=== PATIENT | female | born 1970 | race Caucasian/White ===

== ENCOUNTER 2017-07-25 05:37 | Inpatient (IN) | payer BC, OTHER ==
[~2017-07-25] VITALS: Ht 172.7 cm; Wt 97.7 kg
[~2017-07-25 05:37] MED LIST: BCPILLS PO; CPR500 PO; PEDICHW50 PO
[2017-07-25 06:18] LABS: BASO % 0.2 %; BASO ABS # 0.03 K/uL (0-0.2); COMPLETE YES; EOS % 0.3 %; HEMATOCRIT 47.5 % (37-47); IG% 0.2 %; LYMPH % 7.5 %; LYMPH ABS # 1.27 K/uL (1.2-3.4); MEAN CELL VOLUME 90.5 fL (80-100); MEAN CORPUSCULAR HEMOGLOBIN 31.6 pg (25-34); MEAN CORPUSCULAR HGB CONC 34.9 g/dl (32-36); MEAN PLATELET VOLUME 10.7 fL (7.4-10.4); MONO % 4.1 %; NEUT % 87.7 %; PLATELET COUNT 274 K/uL (130-400); RED BLOOD COUNT 5.25 M/uL (4.2-5.4); WHITE BLOOD COUNT 16.86 K/uL (4.8-10.8)
[2017-07-25 06:30] LABS: BUN/CREATININE RATIO 9.7 (10-20); CALCIUM 9.3 mg/dl (8.5-10.1); CREATININE 0.87 mg/dl (0.60-1.20); POTASSIUM 3.7 mmol/L (3.5-5.1)
[2017-07-25 06:32] LABS: ALB/GLOB RATIO 0.7 (0.9-2)
[2017-07-25] MEDS ORDERED: HYDROmorphone INJ 1 MG/ML SYR IV STA (06:32)
--- NOTE | 2017-07-25 06:39 | EMERGENCY ROOM VISIT NOTE ---
History Report prepared by Denys: Clarita Felix Under the Supervision of: Dr. Calixto Mcintyre M.D. First contact with patient: 06:26 Chief Complaint: GI ASSESSMENT Stated Complaint: DIVERTICULITIS ATTACK Nursing Triage Summary: c/o llq abd pain since tuesday texted her dr at 0430 today and was told to come to the ed.hx of diverticulitis. History of Present Illness The patient is a 46 year old female who presents to the Emergency Room for evaluation of LLQ abdominal pain. Starting yesterday afternoon. Sharp pain. Radiates to left flank. Mild loose stools and nausea. No urinary symptoms. No blood in stool. Denies fevers, chills, vomiting, syncope, swelling, rashes, nor other symptoms. No medications prior to arrival. Movement makes worse. Rest makes better. History of diverticulitis several years ago requiring 1 week admission without need for surgery. History of cholecystectomy. Source of History: patient Onset: yesterday afternoon Position: abdomen (LLQ) Quality: sharp Associated Symptoms: + nausea, No LOC, No fevers, No chills, No urinary symptoms, No rash Review of Systems See HPI for pertinent positives & negatives. A total of 10 systems reviewed and were otherwise negative. Past Medical & Surgical Medical Problems: (1) Acute diverticulitis (2) disc surgery (3) Dizziness and giddiness (4) Tachycardia Surgical Problems: (1) S/P cholecystectomy (2) Tubal ligation status Family History Breast cancer Diabetes mellitus Hypertension Social History Smoking Status: Never Smoker Drug Use: none Marital Status: Housing Status: lives with family Occupation Status: employed Current/Historical Medications Scheduled Control Pills ( Control Pills), 1 TAB PO DAILY Allergies Coded Allergies: No Known Allergies (Unverified , 07/25/17) Physical Exam Vital Signs Date Time Temp Pulse Resp B/P (MAP) Pulse Ox O2 Delivery O2 Flow Rate FiO2 07/25/17 07:40 110 18 130/75 97 Room Air 07/25/17 06:39 114 18 97 Room Air 07/25/17 05:44 36.9 121 18 156/87 95 Room Air Physical Exam GENERAL: Patient is well appearing and in moderate distress. HEENT: No acute trauma, normocephalic atraumatic, mucous membranes moist, no nasal congestion, no scleral icterus. NECK: No stridor, no adenopathy, no meningismus, trachea is midline. LUNGS: No dyspnea. Clear to auscultation and equal bilaterally. No wheeze, no rhonchi. HEART: Regular rate and rhythm. No murmurs, rubs, gallops appreciated. ABDOMEN: Moderate TTP LLQ without rebound. Otherwise soft, nontender, bowel sounds positive, no masses appreciated, no peritonitis. BACK: No midline tenderness, no CVA tenderness EXTREMITIES: Normal motion all extremities, no cyanosis, no edema. NEUROLOGIC: Alert and oriented, no acute motor or sensory deficits, no focal weakness, cranial nerves grossly intact. SKIN: No rash, no jaundice, no diaphoresis. Medical Decision & Procedures ER Provider Diagnostic Interpretation: Radiology results and stated below per my review and radiologist interpretation: ABD/PELVIS IV CONTRAST ONLY HISTORY: 46 years-old Female LLQ abdominal pain. elevated wbc. h/o diverticulitis. Acute left lower quadrant abdominal pain. Initial exam. History of diverticulitis. COMPARISON: CT 01/06/2015 TECHNIQUE: Multiple axial CT images of the abdomen and pelvis were obtained following the administration of both oral and IV contrast. A dose lowering technique was used consistent with the principals of PROSPER. FINDINGS: Lung bases are generally clear. Mild right hemidiaphragmatic elevation. Imaged inferior cardiac chambers are unremarkable. Probable fatty infiltration of the liver. 1.4 cm hyperattenuating focus of the subserosal aspect segment 4A is unchanged from comparison and indeterminate, however statistically benign suggesting incidental vascular anomaly. Prior cholecystectomy. The spleen, pancreas and adrenal glands are within normal limits. No intrahepatic or extrahepatic biliary ductal dilation. Kidneys, ureters, urinary bladder, uterus and adnexa are unremarkable. Abdominal aorta is normal in both course and caliber. No bulky retroperitoneal adenopathy. Small duodenal diverticulum. No bowel obstruction. There is moderate wall thickening with moderate mesenteric edema surrounding inflammatory sigmoid diverticulum seen on image 357 of series 3. No associated pneumoperitoneum to suggest perforation. No abscess. There is hyperattenuating material within the right hemicolon suggesting ingested material or recent oral contrast. The appendix appears normal. Soft tissues are unremarkable. Bones appear intact. Intervertebral disc space narrowing with posterior disc osteophyte complex at L5-S1. IMPRESSION: 1. Findings compatible with acute uncomplicated sigmoid diverticulitis. 2. Probable fatty infiltration of the liver. 3. Prior cholecystectomy. The above report was generated using voice recognition software. It may contain grammatical, syntax or spelling errors. Electronically signed by: Jacek Harvey M.D. 07/25/2017 7:38 AM Dictated Date/Time: 07/25/2017 7:30 AM Laboratory Results 07/25/17 05:55 Red Blood Count 5.25, Mean Corpuscular Volume 90.5, Mean Corpuscular Hemoglobin 31.6, Mean Corpuscular Hemoglobin Concent 34.9, Mean Platelet Volume 10.7, Neutrophils (%) (Auto) 87.7, Lymphocytes (%) (Auto) 7.5, Monocytes (%) (Auto) 4.1, Eosinophils (%) (Auto) 0.3, Basophils (%) (Auto) 0.2, Neutrophils # (Auto) 14.79, Lymphocytes # (Auto) 1.27, Monocytes # (Auto) 0.69, Eosinophils # (Auto) 0.05, Basophils # (Auto) 0.03 07/25/17 05:55 Test 07/25/17 05:55 White Blood Count 16.86 K/uL (4.8-10.8) Red Blood Count 5.25 M/uL (4.2-5.4) Hemoglobin 16.6 g/dL (12.0-16.0) Hematocrit 47.5 % (37-47) Mean Corpuscular Volume 90.5 fL (80-100) Mean Corpuscular Hemoglobin 31.6 pg (25-34) Mean Corpuscular Hemoglobin Concent 34.9 g/dl (32-36) Platelet Count 274 K/uL (130-400) Mean Platelet Volume 10.7 fL (7.4-10.4) Neutrophils (%) (Auto) 87.7 % Lymphocytes (%) (Auto) 7.5 % Monocytes (%) (Auto) 4.1 % Eosinophils (%) (Auto) 0.3 % Basophils (%) (Auto) 0.2 % Neutrophils # (Auto) 14.79 K/uL (1.4-6.5) Lymphocytes # (Auto) 1.27 K/uL (1.2-3.4) Monocytes # (Auto) 0.69 K/uL (0.11-0.59) Eosinophils # (Auto) 0.05 K/uL (0-0.5) Basophils # (Auto) 0.03 K/uL (0-0.2) RDW Standard Deviation 42.8 fL (36.4-46.3) RDW Coefficient of Variation 13.0 % (11.5-14.5) Immature Granulocyte % (Auto) 0.2 % Immature Granulocyte # (Auto) 0.03 K/uL (0.00-0.02) Prothrombin Time 10.6 SECONDS (9.0-12.0) Prothromb Time International Ratio 1.0 (0.9-1.1) Activated Partial Thromboplast Time 27.7 SECONDS (21.0-31.0) Partial Thromboplastin Ratio 1.1 Anion Gap 9.0 mmol/L (3-11) Est Creatinine Clear Calc Drug Dose 95.8 ml/min Estimated GFR () 91.3 Estimated GFR (Non- 78.8 BUN/Creatinine Ratio 9.7 (10-20) Calcium Level 9.3 mg/dl (8.5-10.1) Total Bilirubin 0.9 mg/dl (0.2-1) Aspartate Amino Transf (AST/SGOT) 21 U/L (15-37) Alanine Aminotransferase (ALT/SGPT) 40 U/L (12-78) Alkaline Phosphatase 69 U/L (45-117) Total Protein 7.8 gm/dl (6.4-8.2) Albumin 3.2 gm/dl (3.4-5.0) Globulin 4.6 gm/dl (2.5-4.0) Albumin/Globulin Ratio 0.7 (0.9-2) Lipase 99 U/L (73-393) Laboratory results as reviewed by me. Medications Administered Medications (Trade) Dose Ordered Sig/Domitila Route Start Time Stop Time Status Last Admin Dose Admin Hydromorphone HCl (Dilaudid Inj) 1 mg NOW STAT IV 07/25/17 06:32 07/25/17 06:33 DC 07/25/17 06:37 1 MG Hydromorphone HCl (Dilaudid Inj) 1 mg Q20M PRN IV 07/25/17 07:30 07/25/17 09:45 DC 07/25/17 09:21 1 MG Piperacillin Sod/ Tazobactam Sod (Zosyn Iv) 4.5 gm NOW STAT IV 07/25/17 07:42 07/25/17 07:44 DC 07/25/17 08:05 4.5 GM Sodium Chloride 1,000 ml @ 999 mls/hr Q1H1M STAT IV 07/25/17 07:48 07/25/17 08:48 DC 07/25/17 08:05 999 MLS/HR ED Course 0620: The patient was evaluated in room B1. A complete history and physical exam was performed. 0632: Ordered Dilaudid Inj 1 mg IV. 0730: ordered Dilaudid Inj 1 mg IV. 0742: Ordered Zosyn IV 4.5 gm IV. 0745: I reevaluated the patient and she is feeling better. I discussed the exam findings with her and I discussed the treatment plan. She verbalized complete understanding and agreement. She will be evaluated for further treatment. 0748: Ordered Sodium Chloride 1000 ml @ 999 mls/hr IV. 0749: I discussed the patient's case with Shima Melvin. He is going to evaluate the patient for further treatment. Medical Decision Differential: Diverticulitis, Renal Colic, Pyelonephritis, Hydronephrosis, Appendicitis, Retroperitoneal Bleed/Infection, Aortic Pathology, MSK, Neurologic Pathology, amongst other pathologies entertained. 46 yr old female arrives with acute LLQ abdominal pain starting tomorrow. Quite TTP without diffuse peritonitis. CT with non-perf diverticulitis. Abdomen otherwise OK. Moderate leukocytosis, tachycardia. Not over sepsis but clearly is headed that direction thus given initial Zosyn along with fluids. Feeling better with pain medications. With history will consult hospitalist for monitoring/treatment in hospital. Medication Reconcilliation Current Medication List: was personally reviewed by me Consults Time Called: 747 Consulting Physician: Shima Melvin Returned Call: 0749 I discussed the patient's case with Shima Melvin. He is going to evaluate the patient for further treatment. Impression Primary Impression: Diverticulitis Additional Impression: Leukocytosis Scribe Attestation The scribe's documentation has been prepared under my direction and personally reviewed by me in its entirety. I confirm that the note above accurately reflects all work, treatment, procedures, and medical decision making performed by me. Departure Information Dispostion Being Evaluated By Hospitalist Referrals Ruth De Paz DO (PCP) Problem Qualifiers
--- NOTE | 2017-07-25 06:43 | EMERGENCY ROOM VISIT NOTE ---
History First contact with patient: 06:11 Chief Complaint: GI ASSESSMENT Stated Complaint: DIVERTICULITIS ATTACK Nursing Triage Summary: c/o llq abd pain since tuesday texted her dr at 0430 today and was told to come to the ed.hx of diverticulitis. History of Present Illness The patient is a 46 year old female who presents to the Emergency Room with complaints of left lower quadrant abdominal pain beginning yesterday morning. She states the pain is sharp and constant, rates the pain as 14/10 in severity, and states that it radiates to the back. She has had normal bowel movements, without the presence of blood, and has been nauseous without any vomiting. She has a history of diverticulitis - her last attack was 2-3 years ago, and she was admitted to the hospital for a week and given IV antibiotics. She states she did not have an abscess or rupture at that time, but had a colonoscopy shortly after which was negative for malignancy. Review of Systems Negative except as noted. Constitutional: No fever, No chills, No sweats Eyes: No eye pain ENT: No hearing loss, No sore throat, No tinnitus, No trouble swallowing Respiratory: No cough, No sputum, No wheezing, No shortness of breath Cardiovascular: No chest pain, No edema Abdomen: + pain, + nausea, No vomiting, No diarrhea, No constipation, No GI bleeding Genitourinary - Female: + problem reported (vaginal bleeding consistent with menstrual cycle), No dysuria Neurologic: No memory loss, No numbness/tingling Integumentary: No rash, No new/changing skin lesions Past Medical/Surgical History Medical Problems: (1) Acute diverticulitis (2) disc surgery (3) Dizziness and giddiness (4) Tachycardia Surgical Problems: (1) S/P cholecystectomy (2) Tubal ligation status Social History Smoking Status: Never Smoker Drug Use: none Marital Status: Housing Status: lives with family Current/Historical Medications Scheduled Control Pills ( Control Pills), 1 TAB PO DAILY Allergies No allergies to medications Physical Exam Vital Signs Date Time Temp Pulse Resp B/P (MAP) Pulse Ox O2 Delivery O2 Flow Rate FiO2 07/25/17 09:16 98 18 130/76 97 07/25/17 08:42 Room Air 07/25/17 07:40 110 18 130/75 97 Room Air 07/25/17 06:39 114 18 97 Room Air 10/23/17 05:44 36.9 121 18 156/87 95 Room Air Pain Rating (0-10): 10 Physical Exam No pertinent findings except as noted. General Appearance: WD/WN, + mild distress Respiratory/Chest: chest non-tender, lungs clear, normal breath sounds, no respiratory distress, no accessory muscle use Cardiovascular: regular rate, rhythm, no edema, no gallop, no JVD, no murmur Abdomen / GI: soft, no organomegaly, no pulsatile mass, + tenderness ( tender over lower abdomen, worse over LLQ), + pertinent finding (No abdominal distention, no guarding, no rigidity, no rebound tenderness) Back: normal inspection, no CVA tenderness Neurologic/Psych: alert, normal mood/affect, oriented x 3 Medical Decision & Procedures ER Provider Diagnostic Interpretation: CT Abdomen - Small duodenal diverticulum. No bowel obstruction. There is moderate wall thickening with moderate mesenteric edema surrounding inflammatory sigmoid diverticulum. No associated pneumoperitoneum to suggest perforation. No abscess. Laboratory Results 07/25/17 05:55 Red Blood Count 5.25, Mean Corpuscular Volume 90.5, Mean Corpuscular Hemoglobin 31.6, Mean Corpuscular Hemoglobin Concent 34.9, Mean Platelet Volume 10.7, Neutrophils (%) (Auto) 87.7, Lymphocytes (%) (Auto) 7.5, Monocytes (%) (Auto) 4.1, Eosinophils (%) (Auto) 0.3, Basophils (%) (Auto) 0.2, Neutrophils # (Auto) 14.79, Lymphocytes # (Auto) 1.27, Monocytes # (Auto) 0.69, Eosinophils # (Auto) 0.05, Basophils # (Auto) 0.03 07/25/17 05:55 Test 07/25/17 05:55 White Blood Count 16.86 K/uL (4.8-10.8) Red Blood Count 5.25 M/uL (4.2-5.4) Hemoglobin 16.6 g/dL (12.0-16.0) Hematocrit 47.5 % (37-47) Mean Corpuscular Volume 90.5 fL (80-100) Mean Corpuscular Hemoglobin 31.6 pg (25-34) Mean Corpuscular Hemoglobin Concent 34.9 g/dl (32-36) Platelet Count 274 K/uL (130-400) Mean Platelet Volume 10.7 fL (7.4-10.4) Neutrophils (%) (Auto) 87.7 % Lymphocytes (%) (Auto) 7.5 % Monocytes (%) (Auto) 4.1 % Eosinophils (%) (Auto) 0.3 % Basophils (%) (Auto) 0.2 % Neutrophils # (Auto) 14.79 K/uL (1.4-6.5) Lymphocytes # (Auto) 1.27 K/uL (1.2-3.4) Monocytes # (Auto) 0.69 K/uL (0.11-0.59) Eosinophils # (Auto) 0.05 K/uL (0-0.5) Basophils # (Auto) 0.03 K/uL (0-0.2) RDW Standard Deviation 42.8 fL (36.4-46.3) RDW Coefficient of Variation 13.0 % (11.5-14.5) Immature Granulocyte % (Auto) 0.2 % Immature Granulocyte # (Auto) 0.03 K/uL (0.00-0.02) Prothrombin Time 10.6 SECONDS (9.0-12.0) Prothromb Time International Ratio 1.0 (0.9-1.1) Activated Partial Thromboplast Time 27.7 SECONDS (21.0-31.0) Partial Thromboplastin Ratio 1.1 Anion Gap 9.0 mmol/L (3-11) Est Creatinine Clear Calc Drug Dose 95.8 ml/min Estimated GFR () 91.3 Estimated GFR (Non- 78.8 BUN/Creatinine Ratio 9.7 (10-20) Calcium Level 9.3 mg/dl (8.5-10.1) Total Bilirubin 0.9 mg/dl (0.2-1) Aspartate Amino Transf (AST/SGOT) 21 U/L (15-37) Alanine Aminotransferase (ALT/SGPT) 40 U/L (12-78) Alkaline Phosphatase 69 U/L (45-117) Total Protein 7.8 gm/dl (6.4-8.2) Albumin 3.2 gm/dl (3.4-5.0) Globulin 4.6 gm/dl (2.5-4.0) Albumin/Globulin Ratio 0.7 (0.9-2) Lipase 99 U/L (73-393) Medications Administered Medications (Trade) Dose Ordered Sig/Domitila Route Start Time Stop Time Status Last Admin Dose Admin Hydromorphone HCl (Dilaudid Inj) 1 mg NOW STAT IV 07/25/17 06:32 07/25/17 06:33 DC 07/25/17 06:37 1 MG Hydromorphone HCl (Dilaudid Inj) 1 mg Q20M PRN IV 07/25/17 07:30 08/08/17 07:29 07/25/17 09:21 1 MG Piperacillin Sod/ Tazobactam Sod (Zosyn Iv) 4.5 gm NOW STAT IV 07/25/17 07:42 07/25/17 07:44 DC 07/25/17 08:05 4.5 GM Sodium Chloride 1,000 ml @ 999 mls/hr Q1H1M STAT IV 07/25/17 07:48 07/25/17 08:48 DC 07/25/17 08:05 999 MLS/HR Medical Decision The patient was seen and assessed in room A9. Given her extensive diverticulitis and increased WCC, she was evaluated by Dr. Godwin and will be admitted. She was given 1mg of Dilaudid and Zosyn in the ED. This was discussed with the patient and she stated she would feel more comfortable being admitted. Impression Primary Impression: Acute diverticulitis Departure Information Dispostion Admitted as an inpatient Referrals Ruth De Paz DO (PCP) Patient Instructions My [facility] Resident Tracking Resident Involvement: Resident Care Provided Care Provided: Adult Hospital Medicine
[2017-07-25] MEDS ORDERED: OPTIRAY 320 IV PRN (06:45)
[2017-07-25] MEDS ORDERED: HYDROmorphone INJ 1 MG/ML SYR IV PRN (07:30)
--- NOTE | 2017-07-25 07:40 | DIAGNOSTIC IMAGING REPORT ---
ABD/PELVIS IV CONTRAST ONLY HISTORY: 46 years-old Female LLQ abdominal pain. elevated wbc. h/o diverticulitis. Acute left lower quadrant abdominal pain. Initial exam. History of diverticulitis. COMPARISON: CT 01/06/2015 TECHNIQUE: Multiple axial CT images of the abdomen and pelvis were obtained following the administration of both oral and IV contrast. A dose lowering technique was used consistent with the principals of PROSPER. FINDINGS: Lung bases are generally clear. Mild right hemidiaphragmatic elevation. Imaged inferior cardiac chambers are unremarkable. Probable fatty infiltration of the liver. 1.4 cm hyperattenuating focus of the subserosal aspect segment 4A is unchanged from comparison and indeterminate, however statistically benign suggesting incidental vascular anomaly. Prior cholecystectomy. The spleen, pancreas and adrenal glands are within normal limits. No intrahepatic or extrahepatic biliary ductal dilation. Kidneys, ureters, urinary bladder, uterus and adnexa are unremarkable. Abdominal aorta is normal in both course and caliber. No bulky retroperitoneal adenopathy. Small duodenal diverticulum. No bowel obstruction. There is moderate wall thickening with moderate mesenteric edema surrounding inflammatory sigmoid diverticulum seen on image 357 of series 3. No associated pneumoperitoneum to suggest perforation. No abscess. There is hyperattenuating material within the right hemicolon suggesting ingested material or recent oral contrast. The appendix appears normal. Soft tissues are unremarkable. Bones appear intact. Intervertebral disc space narrowing with posterior disc osteophyte complex at L5-S1. IMPRESSION: 1. Findings compatible with acute uncomplicated sigmoid diverticulitis. 2. Probable fatty infiltration of the liver. 3. Prior cholecystectomy. The above report was generated using voice recognition software. It may contain grammatical, syntax or spelling errors. Electronically signed by: Jacek Harvey M.D. 07/25/2017 7:38 AM Dictated Date/Time: 07/25/2017 7:30 AM
[2017-07-25] MEDS ORDERED: PIPERACILLIN/TAZOBACTAM 4.5 GM/100ML D5W IV STA (07:42)
[2017-07-25] MEDS ORDERED: SODIUM CHLORIDE 0.9% 1000ML 1,000 ML IV STA (07:48)
[2017-07-25 08:26] LABS: PARTIAL THROMBOPLASTIN RATIO 1.1; PROTHROMBIN TIME (PATIENT) 10.6 SECONDS (9.0-12.0)
[2017-07-25] MEDS ORDERED: CIPROFLOXACIN / D5W 400 MG in PREMIXED IN D5W 200 ML IV ONE (08:26)
[2017-07-25] MEDS ORDERED: ALBUTEROL HFA 8 GM INHALER INH PRN (08:30)
[2017-07-25 08:42] VITALS: Ht 172.7 cm; Wt 97.7 kg
[2017-07-25] MEDS ORDERED: ALUMINUM/MAGNESIUM/SIMETH (MAALOX MAX) 30 ML UDC PO PRN (08:45)
--- NOTE | 2017-07-25 08:50 | HISTORY & PHYSICAL EXAMINATION ---
DATE OF ADMISSION: 07/25/2017 PRIMARY CARE PHYSICIAN: Ruth De Paz DO. CHIEF COMPLAINT: Lower abdomen and lower back pain since last night. HISTORY OF PRESENT COMPLAINT: She is a 46-year-old female with significant past medical history of allergic rhinitis, prior history of diverticulitis of the colon about 2 years back and also ovarian cyst of the left side. Apparently has been complaining of left flank/back pain associated with abdominal pain since last night. Her pain is severe on a scale of 0-10 is anywhere about 8 associated with some nausea but no vomiting and dizziness. She did have a feeling of feverish and documented a temperature to be 100.2 last night. She did not have any abdominal distention and no diarrhea and constipation. She denies to have any problem with her urine and/or bowel, urine habits as well. She does not have any chest pain, palpitation, any shortness of breath. No headache, no blurred vision, no numbness or tingling in the extremities and she does not have any pain involving any of the joints and no rash as well. In the Emergency Room, she was hemodynamically stable. She was afebrile. Her white count of more than 16,000 and a CAT scan did show acute diverticulitis involving the sigmoid colon but no evidence of any perforation and/or abscess. From that point, she was started on intravenous antibiotic and was advised admission. PAST MEDICAL HISTORY: Significant for allergic rhinitis, history of diverticulitis, left ovarian cyst and also a history of excessive menstruation. PAST SURGICAL HISTORY: Significant for cholecystectomy and back surgery in the past. FAMILY HISTORY: Significant that father had diabetes and also grandparent had diabetes. SOCIAL HISTORY: She is . She lives with her . She has 2 kids. She does not smoke and does not drink and she has been reasonably ambulant. ALLERGIES: NKDA. MEDICATIONS: She takes regularly control pill and she has been on albuterol ProAir as needed for allergic symptoms, I believe. REVIEW OF SYSTEMS: Other systemic review unremarkable except those mentioned in history of present complaint. PHYSICAL EXAMINATION: GENERAL: On examination in the Emergency Room, she was not having any acute distress, but she complained to have some pain in the left lower abdomen and hypogastric area. HEENT: Unremarkable. VITAL SIGNS: Temperature 36.9, pulse of 110. Blood pressure was 130/75 and saturation 97% on room air. HEENT: Unremarkable. NECK: Supple. No JVD, no bruit. CHEST: Clear to auscultation bilaterally. HEART: S1, S2 regular. ABDOMEN: Slightly distended and soft. Tender in the left lower quadrant and also hypogastrium. There is no rebound tenderness and tenderness noted in the left flank and/or left renal angle as well. EXTREMITIES: No edema. MUSCULOSKELETAL: Did not show any acute arthritis involving any joint. CENTRAL NERVOUS SYSTEM: Alert, awake, oriented x3 and did not have any focal sensory and/or motor deficit. She did not have any rash on general examinations and did not have any enlargement of lymph nodes. LABORATORY DATA: Noted today white count was 16.86 with a neutrophilic of 14.79, H&H 16.6/47.5, platelet was 274. Sodium 136, potassium 3.7, chloride 105, CO2 22, BUN 8, creatinine 0.87, random glucose 180, calcium was 9.3. LFTs normal. Lipase 79. PT INR is pending. EKG is pending. Chest x-ray is pending. CT of the abdomen and pelvis reported as findings compatible with acute uncomplicated sigmoid diverticulitis, probable fatty infiltration of the liver and prior cholecystectomy. IMPRESSION AND PLAN: 1. Acute sigmoid diverticulitis. The patient does have criteria of systemic inflammatory response syndrome. Started on intravenous Zosyn. We will get blood culture taken. She will be given Cipro and Flagyl IV. IV pain medications and also IV fluid for the time being. Clear liquids orally and as tolerated. 2. Allergic rhinitis. She does not have any allergic symptoms at this time. Continue with her usual medications of inhaler. 3. Prior history of diverticulitis of the colon about 2 years back. This is her second episode in 2-3 years, outpatient followup with surgery would be appropriate. She has had a colonoscopy done about 1-2 years ago that was unremarkable. 3. Gastrointestinal prophylaxis with Maalox, Mylanta as needed. 4. Deep venous thrombosis prophylaxis with Lovenox. 5. Code status -- She will be a full code. In my clinical assessment, the beneficiary meets criteria as per CMS for 2 midnight admission in the hospital. NATASHA
[2017-07-25 09:30] VITALS: BP 128/77; PULSE 99; TEMP 37.3; O2SAT 96
[2017-07-25] MEDS: NSS + 20MEQ KCL 1000ML 1,000 ML IV SCH ×2 (10:43→19:32)
[2017-07-25] MEDS: ENOXAPARIN 40 MG/0.4 ML SYR SQ SCH (10:45)
[2017-07-25] MEDS: CIPROFLOXACIN / D5W 400 MG in PREMIXED IN D5W 200 ML IV SCH ×2 (10:51→20:45)
[2017-07-25] MEDS: METRONIDAZOLE / NSS 500 MG in PREMIXED NSS 100 ML IV SCH ×2 (10:51→18:08)
[2017-07-25 12:44] LABS: URINE APPEARANCE CLEAR (CLEAR); URINE BILIRUBIN NEG (NEG); URINE COLOR YELLOW; URINE NITRITE NEG (NEG); URINE SPECIFIC GRAVITY > 1.045 (1.000-1.030); UROBILINOGEN NEG (NEG); ZZUR CULT IF INDIC CLEAN CATCH NO
[2017-07-25 12:45] LABS: MANUAL MICROSCOPIC REQUIRED? NO; REVIEW REQ? NO
[2017-07-25] MEDS: ONDANSETRON INJ 2 MG/ML 2 ML VIAL IV PRN (12:49)
[2017-07-25] MEDS: HYDROmorphone INJ 1 MG/ML SYR IV PRN ×2 (13:12→19:31)
--- NOTE | 2017-07-25 14:05 | DIAGNOSTIC IMAGING REPORT ---
CHEST 2 VIEWS ROUTINE CLINICAL HISTORY: r/o pneumonia dyspnea COMPARISON STUDY: 12/27/2012 FINDINGS: The bones soft tissues and hemidiaphragms are normal. The cardiomediastinal silhouette is normal. The lungs are clear. The pulmonary vasculature is normal. IMPRESSION: Negative chest. The above report was generated using voice recognition software. It may contain grammatical, syntax or spelling errors. Electronically signed by: Connor Fofana M.D. 07/25/2017 2:04 PM Dictated Date/Time: 07/25/2017 2:03 PM
[2017-07-25 15:09] VITALS: BP 123/56; PULSE 106; TEMP 37.2; O2SAT 95
[2017-07-25 19:09] VITALS: O2SAT 95
[2017-07-25 23:10] VITALS: BP 131/77; PULSE 91; TEMP 36.7; O2SAT 95
[2017-07-25] MEDS ORDERED: HYDROmorphone INJ 0.5 MG/0.5 ML SYR IV PRN (23:45)
[2017-07-26] MEDS ORDERED: KETOROLAC TROMETHAMINE 30 MG/ML VIAL IV PRN
[2017-07-26] MEDS: TRAMADOL HCL 50 MG TAB PO PRN ×3 (00:53→12:47)
[2017-07-26] MEDS: ACETAMINOPHEN 325 MG TAB PO PRN ×3 (00:54→23:43)
[2017-07-26] MEDS: METRONIDAZOLE / NSS 500 MG in PREMIXED NSS 100 ML IV SCH ×3 (02:36→18:26)
[2017-07-26] MEDS: NSS + 20MEQ KCL 1000ML 1,000 ML IV SCH (05:54)
[2017-07-26 07:38] LABS: HEMATOCRIT 39.3 % (37-47); MEAN CELL VOLUME 91.6 fL (80-100); MEAN CORPUSCULAR HEMOGLOBIN 31.7 pg (25-34); MEAN CORPUSCULAR HGB CONC 34.6 g/dl (32-36); MEAN PLATELET VOLUME 10.3 fL (7.4-10.4); PLATELET COUNT 211 K/uL (130-400); RED BLOOD COUNT 4.29 M/uL (4.2-5.4)
[2017-07-26 07:51] LABS: BUN/CREATININE RATIO 6.6 (10-20); CREATININE 0.79 mg/dl (0.60-1.20); POTASSIUM 3.6 mmol/L (3.5-5.1)
[2017-07-26 07:57] LABS: CALCIUM 7.9 mg/dl (8.5-10.1)
[2017-07-26 08:31] VITALS: BP 129/75; PULSE 91; TEMP 37.3; O2SAT 97
[2017-07-26] MEDS: CIPROFLOXACIN / D5W 400 MG in PREMIXED IN D5W 200 ML IV SCH ×2 (09:00→21:09)
[2017-07-26] MEDS: ENOXAPARIN 40 MG/0.4 ML SYR SQ SCH (10:40)
--- NOTE | 2017-07-26 12:27 | Clinical Documentation Query ---
CLINICAL DOCUMENTATION QUERY 46 yo female with complaint of LLQ abdominal pain and positive for acute sigmoid diverticulitis. In your clinical opinion is this patient being managed for: ( ) Sepsis, in the setting of acute sigmoid diverticulitis and treated with IV Zosyn ( ) Not Agree ( ) Other explanation of clinical findings (Please Explain) ( ) Unable to determine (Please Define) ( ) Need to Discuss The medical record reflects the following clinical findings, treatment, and risk factors. Clinical Indicators: WBC 16, pulse 121, temp 100.2 Treatment: Zosyn IV, IV hydration, Cipro IV, blood cultures Risk Factors: Abscess and/or perforation, organ failure Please clarify and document your clinical opinion in the progress notes and discharge summary. Terms such as "probable", "suspected", "likely", "questionable", "possible", or "still to be ruled out" are acceptable. IF IN AGREEMENT, YOU MUST DOCUMENT ABOVE DIAGNOSTIC STATEMENT IN DAILY PROGRESS NOTES AND DISCHARGE SUMMARY. This document is not part of the patient's record. Thank You, Nataliya Rubio RN [phone]
--- NOTE | 2017-07-26 15:11 | Progress Note ---
Medicine Progress Note Date & Time of Visit: Jul 26, 2017 at 15:11 . Subjective Left lower quadrant abdominal pain improved from 07/12 yesterday to 12/10 today. No fever. Tolerating clear liquids. No nausea or vomiting. No diarrhea or medical he 3. No chest pain. No cough or shortness of breath. No dysuria. . Objective Last 8 Hrs Date Time Temp Pulse Resp B/P (MAP) Pulse Ox O2 Delivery O2 Flow Rate FiO2 07/26/17 08:31 37.3 91 18 129/75 (93) 97 Room Air 07/26/17 08:30 Room Air Physical Exam: General- no distress Lungs- clear Heart- regular Abdomen- slightly distended, normal bowel sounds, soft, moderate left lower quadrant tenderness without guarding or rebound Extremities- no pretibial edema or calf tenderness Neuro- alert . Laboratory Results: Last 24 Hours Test 07/26/17 07:09 White Blood Count 9.80 K/uL Red Blood Count 4.29 M/uL Hemoglobin 13.6 g/dL Hematocrit 39.3 % Mean Corpuscular Volume 91.6 fL Mean Corpuscular Hemoglobin 31.7 pg Mean Corpuscular Hemoglobin Concent 34.6 g/dl RDW Standard Deviation 44.4 fL RDW Coefficient of Variation 13.2 % Platelet Count 211 K/uL Mean Platelet Volume 10.3 fL Sodium Level 139 mmol/L Potassium Level 3.6 mmol/L Chloride Level 109 mmol/L Carbon Dioxide Level 25 mmol/L Anion Gap 6.0 mmol/L Blood Urea Nitrogen 5 mg/dl Creatinine 0.79 mg/dl Est Creatinine Clear Calc Drug Dose 106.4 ml/min Estimated GFR () 102.6 Estimated GFR (Non- 88.5 BUN/Creatinine Ratio 6.6 Random Glucose 239 mg/dl Calcium Level 7.9 mg/dl Total Bilirubin 0.6 mg/dl Direct Bilirubin 0.2 mg/dl Aspartate Amino Transf (AST/SGOT) 15 U/L Alanine Aminotransferase (ALT/SGPT) 25 U/L Alkaline Phosphatase 52 U/L Total Protein 6.4 gm/dl Albumin 2.4 gm/dl Assessment & Plan DIVERTICULITIS SIGMOID COLON Recurrent (about 4 prior episodes), uncomplicated. Symptoms and leukocytosis improved. Continue the ciprofloxacin and metronidazole. Advance diet as tolerated. HYPERGLYCEMIA Family history of diabetes. Fasting blood sugar morning of admission 180. Fasting blood sugar this morning 239. Check hemoglobin A1c. Lantus/NovoLog per protocol during hospital stay. VTE PROPHYLAXIS SQ enoxaparin. Ambulate. DISPOSITION Expected discharge to home. Family Medicine follow-up with Dr. De Paz. . Current Inpatient Medications: Current Inpatient Medications Medications (Trade) Dose Ordered Sig/Domitila Route Start Time Stop Time Status Last Admin Dose Admin Ioversol (Optiray 320) 100 ml UD PRN IV 07/25/17 06:45 07/29/17 06:44 Enoxaparin Sodium (Lovenox Inj) 40 mg Q24H SQ 07/25/17 10:00 08/24/17 09:59 07/26/17 10:40 40 MG Ondansetron HCl (Zofran Inj) 4 mg Q6H PRN IV 07/25/17 08:30 08/24/17 08:29 07/25/17 12:49 4 MG Albuterol (Ventolin Hfa Inhaler) 2 puffs Q6H PRN INH 07/25/17 08:30 08/24/17 08:29 Ciprofloxacin/ Dextrose 400 mg/ Prmx 200 ml @ 100 mls/hr Q12@0900,2100 IV 07/25/17 10:00 08/04/17 09:59 07/26/17 09:00 100 MLS/HR Metronidazole 500 mg/Prmx 100 ml @ 100 mls/hr Q8H IV 07/25/17 10:00 08/04/17 09:59 07/26/17 10:39 100 MLS/HR Potassium Chloride/Sodium Chloride 1,000 ml @ 100 mls/hr Q10H IV 07/25/17 10:00 08/24/17 09:59 07/26/17 05:54 100 MLS/HR Al Hydrox/Mg Hydrox/Simethicone (Maalox Max Susp) 15 ml Q6H PRN PO 07/25/17 08:45 08/24/17 08:44 07/26/17 10:42 15 ML Hydromorphone HCl (Dilaudid Inj) 0.5 mg Q4H PRN IV 07/25/17 23:45 08/08/17 08:29 Tramadol HCl (Ultram Tab) 25 mg Q6H PRN PO 07/26/17 00:00 08/25/17 00:00 07/26/17 12:47 25 MG Acetaminophen (Tylenol Tab) 650 mg Q6H PRN PO 07/26/17 00:00 08/25/17 00:00 07/26/17 09:00 650 MG Ketorolac Tromethamine (Toradol Inj) 30 mg Q6H PRN IV 07/26/17 00:00 07/31/17 00:00
[2017-07-26 16:11] VITALS: BP 165/76; PULSE 92; TEMP 36.8; O2SAT 97
[2017-07-26] MEDS ORDERED: GLUCOSE 10 TABS/TUBE PO PRN (16:15)
[2017-07-26] MEDS ORDERED: GLUCAGON FOR INJ 1 MG VIAL SQ PRN (16:15)
[2017-07-26] MEDS ORDERED: GLUCOSE 40% GEL 15 GM TUBE PO PRN (16:15)
[2017-07-26] MEDS ORDERED: DEXTROSE 50% 50 ML SYR IV PRN (16:15)
[2017-07-26] MEDS: INSULIN ASPART 100 UNITS/ML 3 ML PEN SC SCH ×2 (18:25→21:00)
[2017-07-26] MEDS: ONDANSETRON INJ 2 MG/ML 2 ML VIAL IV PRN (18:26)
[2017-07-26] MEDS: INSULIN GLARGINE SOLOSTAR 100 UNITS/ML 3 ML PEN SC SCH (21:08)
[2017-07-26 23:31] VITALS: BP 133/81; PULSE 78; TEMP 36.6; O2SAT 97
[2017-07-27] MEDS: METRONIDAZOLE / NSS 500 MG in PREMIXED NSS 100 ML IV SCH ×2 (02:11→09:47)
[2017-07-27] MEDS: ONDANSETRON INJ 2 MG/ML 2 ML VIAL IV PRN ×2 (03:23→09:44)
--- NOTE | 2017-07-27 06:07 | Clinical Documentation Query ---
CLINICAL DOCUMENTATION QUERY 46 yo female with complaint of LLQ abdominal pain and positive for acute sigmoid diverticulitis. In your clinical opinion is this patient being managed for: ( ) Sepsis, in the setting of acute sigmoid diverticulitis and treated with IV Zosyn ( x ) Not Agree ( ) Other explanation of clinical findings (Please Explain) ( ) Unable to determine (Please Define) ( ) Need to Discuss The medical record reflects the following clinical findings, treatment, and risk factors. Clinical Indicators: Documented meets SIRS criteria: WBC 16, pulse 121, temp 100.2 Treatment: Zosyn IV, IV hydration, Cipro IV, blood cultures Risk Factors: Abscess and/or perforation, organ failure Please clarify and document your clinical opinion in the progress notes and discharge summary. Terms such as "probable", "suspected", "likely", "questionable", "possible", or "still to be ruled out" are acceptable. IF IN AGREEMENT, YOU MUST DOCUMENT ABOVE DIAGNOSTIC STATEMENT IN DAILY PROGRESS NOTES AND DISCHARGE SUMMARY. This document is not part of the patient's record. Thank You, Nataliya Rubio RN [phone]
[2017-07-27 06:48] LABS: HEMATOCRIT 38.9 % (37-47); MEAN CELL VOLUME 91.1 fL (80-100); MEAN CORPUSCULAR HEMOGLOBIN 31.9 pg (25-34); MEAN PLATELET VOLUME 10.3 fL (7.4-10.4); PLATELET COUNT 227 K/uL (130-400); RED BLOOD COUNT 4.27 M/uL (4.2-5.4); WHITE BLOOD COUNT 6.88 K/uL (4.8-10.8)
[2017-07-27 07:22] LABS: BUN/CREATININE RATIO 8.8 (10-20); CREATININE 0.61 mg/dl (0.60-1.20); POTASSIUM 3.6 mmol/L (3.5-5.1)
[2017-07-27] MEDS: TRAMADOL HCL 50 MG TAB PO PRN (07:22)
[2017-07-27 07:33] VITALS: BP 144/78; PULSE 83; TEMP 36.9; O2SAT 98
[2017-07-27 07:54] LABS: ESTIMATED AVERAGE GLUCOSE 146 mg/dl; HA1C FLAG Normal (Normal)
[2017-07-27] MEDS: INSULIN ASPART 100 UNITS/ML 3 ML PEN SC SCH ×2 (08:44→13:12)
[2017-07-27] MEDS: ACETAMINOPHEN 325 MG TAB PO PRN (08:45)
[2017-07-27] MEDS: INSULIN GLARGINE SOLOSTAR 100 UNITS/ML 3 ML PEN SC SCH (08:45)
[2017-07-27] MEDS: CIPROFLOXACIN / D5W 400 MG in PREMIXED IN D5W 200 ML IV SCH (09:47)
[2017-07-27] MEDS: ENOXAPARIN 40 MG/0.4 ML SYR SQ SCH (09:47)
[2017-07-27 12:15] VITALS: BP 145/79; PULSE 80; TEMP 36.9; O2SAT 96
[2017-07-27 15:00] VITALS: BP 143/84; PULSE 82; TEMP 37.2; O2SAT 97
--- NOTE | 2017-07-27 16:27 | Progress Note ---
Medicine Progress Note Date & Time of Visit: Jul 27, 2017 at 16:26 . Subjective Feels much better. Left lower quadrant abdominal pain essentially resolved. No fever. No nausea or vomiting. No diarrhea or bloody stools. Persistent vertigo when lying on right side. . Objective Last 8 Hrs Date Time Temp Pulse Resp B/P (MAP) Pulse Ox O2 Delivery O2 Flow Rate FiO2 07/27/17 15:00 37.2 82 20 143/84 (103) 97 Room Air 07/27/17 12:15 36.9 80 16 145/79 (101) 96 Room Air Physical Exam: General- no distress Lungs- clear Heart- regular Abdomen- nondistended, normal bowel sounds, soft, nontender Extremities- no pretibial edema or calf tenderness Neuro- alert . Laboratory Results: Last 24 Hours Test 07/26/17 18:13 07/26/17 20:52 07/27/17 06:24 07/27/17 08:04 Bedside Glucose 135 mg/dl 170 mg/dl 185 mg/dl White Blood Count 6.88 K/uL Red Blood Count 4.27 M/uL Hemoglobin 13.6 g/dL Hematocrit 38.9 % Mean Corpuscular Volume 91.1 fL Mean Corpuscular Hemoglobin 31.9 pg Mean Corpuscular Hemoglobin Concent 35.0 g/dl RDW Standard Deviation 43.2 fL RDW Coefficient of Variation 13.0 % Platelet Count 227 K/uL Mean Platelet Volume 10.3 fL Sodium Level 141 mmol/L Potassium Level 3.6 mmol/L Chloride Level 109 mmol/L Carbon Dioxide Level 25 mmol/L Anion Gap 6.0 mmol/L Blood Urea Nitrogen 5 mg/dl Creatinine 0.61 mg/dl Est Creatinine Clear Calc Drug Dose 137.8 ml/min Estimated GFR () 124.2 Estimated GFR (Non- 107.2 BUN/Creatinine Ratio 8.8 Random Glucose 158 mg/dl Estimated Average Glucose 146 mg/dl Hemoglobin A1c 6.7 % Calcium Level 8.0 mg/dl Test 07/27/17 12:13 Bedside Glucose 165 mg/dl Assessment & Plan DIVERTICULITIS SIGMOID COLON Recurrent (about 4 prior episodes), uncomplicated. Received IV ciprofloxacin and metronidazole with improvement. Diet advanced without difficulty. Transition to oral therapy with ciprofloxacin and metronidazole to complete 14 day course. May be reasonable to consider elective sigmoid resection in light of multiple recurrences. Patient to discuss referral with PCP. HYPERGLYCEMIA Family history of diabetes. Fasting blood sugar morning of admission 180. Fasting blood sugar 07/26 was 239. Hemoglobin A1c = 6.7. Received Lantus/NovoLog per protocol during hospital stay. Diet, exercise, weight management discussed. Outpatient follow-up with PCP. May require initiation of therapy if blood sugars remain elevated. VERTIGO [place]-Hallpike positive on right. Felecia maneuver attempted, but not tolerated. Outpatient follow-up with ENT recommended. VTE PROPHYLAXIS SQ enoxaparin. Ambulate. DISPOSITION Discharge to home. Family Medicine follow-up with Dr. De Paz. . Current Inpatient Medications: Current Inpatient Medications Medications (Trade) Dose Ordered Sig/Domitila Route Start Time Stop Time Status Last Admin Dose Admin Ioversol (Optiray 320) 100 ml UD PRN IV 07/25/17 06:45 07/29/17 06:44 Enoxaparin Sodium (Lovenox Inj) 40 mg Q24H SQ 07/25/17 10:00 08/24/17 09:59 07/27/17 09:47 40 MG Ondansetron HCl (Zofran Inj) 4 mg Q6H PRN IV 07/25/17 08:30 08/24/17 08:29 07/27/17 09:44 4 MG Albuterol (Ventolin Hfa Inhaler) 2 puffs Q6H PRN INH 07/25/17 08:30 08/24/17 08:29 Ciprofloxacin/ Dextrose 400 mg/ Prmx 200 ml @ 100 mls/hr Q12@0900,2100 IV 07/25/17 10:00 08/04/17 09:59 07/27/17 09:47 100 MLS/HR Metronidazole 500 mg/Prmx 100 ml @ 100 mls/hr Q8H IV 07/25/17 10:00 08/04/17 09:59 07/27/17 09:47 100 MLS/HR Al Hydrox/Mg Hydrox/Simethicone (Maalox Max Susp) 15 ml Q6H PRN PO 07/25/17 08:45 08/24/17 08:44 07/26/17 10:42 15 ML Hydromorphone HCl (Dilaudid Inj) 0.5 mg Q4H PRN IV 07/25/17 23:45 08/08/17 08:29 Tramadol HCl (Ultram Tab) 25 mg Q6H PRN PO 07/26/17 00:00 08/25/17 00:00 07/27/17 07:22 25 MG Acetaminophen (Tylenol Tab) 650 mg Q6H PRN PO 07/26/17 00:00 08/25/17 00:00 07/27/17 08:45 650 MG Ketorolac Tromethamine (Toradol Inj) 30 mg Q6H PRN IV 07/26/17 00:00 07/31/17 00:00 07/26/17 18:27 30 MG Insulin Glargine (Lantus Solostar Pen) 8 units BID SC 07/26/17 21:00 08/25/17 20:59 07/27/17 08:45 8 UNITS Insulin Aspart (novoLOG ASPART) SLIDING SCALE G... ACHS SC 07/26/17 17:15 08/25/17 17:14 07/27/17 13:12 2 UNITS Glucose (Glucose 40% Gel) 15-30 GRAMS 15 GRAMS... UD PRN PO 07/26/17 16:15 08/25/17 16:14 Glucose (Glucose Chew Tab) 4-8 Tablets 4 Tabl... UD PRN PO 07/26/17 16:15 08/25/17 16:14 Dextrose (Dextrose 50% 50ML Syringe) 25-50ML OF 50% DW IV FOR... UD PRN IV 07/26/17 16:15 08/25/17 16:14 Glucagon (Glucagon Inj) 1 mg UD PRN SQ 07/26/17 16:15 08/25/17 16:14
[2017-07-27] MEDS ORDERED: CIPR-255 PO (16:35)
[2017-07-27] MEDS ORDERED: METR-162 PO (16:35)
--- NOTE | 2017-07-27 16:46 | Discharge Instructions ---
Discharge Instructions Date of Service Jul 27, 2017. Admission Reason for Admission: diverticulitis . Discharge Discharge Diagnosis / Problem: diverticulitis Discharge Goals Goal(s): Improve disease control Activity Recommendations Activity Limitations: resume your previous activity . Instructions / Follow-Up Instructions / Follow-Up FOLLOW-UP APPOINTMENTS: FAMILY MEDICINE 07/29/2017 1:00 PM Ruth De Paz, INSTRUCTIONS: Take ciprofloxacin (Cipro) 500 mg twice a day for 12 days. Take metronidazole (Flagyl) 500 mg 3 times a day for 12 days. Low fiber diet for 2 weeks, then high fiber. Avoid excessive starches and sweets. Have Dr. De Paz follow your blood sugars. Consider consultation with Dr. Moore to discuss recurrent diverticulitis. Seek medical attention if you have: * temperature above 101 * chest pain or trouble breathing * abdominal pain, nausea, vomiting * diarrhea, dark stools or bloody stools * any unanswered questions or concerns Call 911 if symptoms are severe. Call if you have any questions or problems. My cell # is [phone]. You can also reach a [facility] hospitalist on duty at [facility] 24 hours a day by calling [phone]. Please take good care of yourself. Christopher Russo . Current Hospital Diet Patient's current hospital diet: Diabetes Type 2 Diet, Low Fiber Diet Discharge Diet Recommended Diet: Regular Diet (see diet comments under "Instructions / Follow- up") Pending Studies Studies pending at discharge: no List of pending studies: CT abdomen showed diverticulitis. Laboratory Results Hemoglobin A1c Test 07/27/17 06:24 Range/Units Estimated Average Glucose 146 mg/dl Hemoglobin A1c 6.7 H 4.5-5.6 % Work Instructions Additional Instructions: Dayna Sheikh was absent from work the week of 07/25/17 due to illness. Anticipated return to work Tuesday08/01/17 without restrictions. Medical Emergencies . Who to Call and When: Medical Emergencies: If at any time you feel your situation is an emergency, please call 911 immediately. . Non-Emergent Contact Non-Emergency issues call your: Primary Care Provider, Hospital Doctor . . "Provider Documentation" section prepared by Christopher Russo. . VTE Core Measure Inpt VTE Proph given/why not?: Enoxaparin (Lovenox)SQ
[2017-07-27 17:28] VITALS: BP 143/84; PULSE 82; TEMP 37.2; O2SAT 97
--- NOTE | 2017-07-27 23:59 | Discharge Summary ---
Discharge Summary Date of Service Jul 27, 2017. Discharge Summary Admission Date: Jul 25, 2017 at 08:25 Discharge Date: Jul 27, 2017 Discharge Disposition: Home Principal Diagnosis: acute sigmoid diverticulitis, recurrent, uncomplicated . Secondary Diagnoses/Problems: Other Acute Medical Problems: (1) Hyperglycemia (2) Vertigo Chronic and Resolved Medical Problems: (1) History of colonic diverticulitis (2) Left ovarian cyst Surgical Problems: (1) Status post cholecystectomy (2) Status post lumbar surgery . Procedures: CT abdomen + pelvis IV fluids PT . Pending Studies/Follow-Up: Please monitor blood sugars and Hgb A1C's as outpatient. Please arrange for referral to ENT if vertigo persists. Consider referral to General Surgery (Dr. Moore) re: recurrent diverticulitis. . Medication Reconciliation New Medications: Ciprofloxacin Hcl (Cipro) 500 Mg Tab 500 MG PO BID, #24 TAB Metronidazole (Flagyl) 500 Mg Tab 500 MG PO TID, #36 TAB Continued Medications: Control Pills ( Control Pills) Tab 1 TAB PO DAILY, TAB Admission Information HPI (per Admitting provider): She is a 46-year-old female with significant past medical history of allergic rhinitis, prior history of diverticulitis of the colon about 2 years back and also ovarian cyst of the left side. Apparently has been complaining of left flank/back pain associated with abdominal pain since last night. Her pain is severe on a scale of 0-10 is anywhere about 8 associated with some nausea but no vomiting and dizziness. She did have a feeling of feverish and documented a temperature to be 100.2 last night. She did not have any abdominal distention and no diarrhea and constipation. She denies to have any problem with her urine and/or bowel, urine habits as well. She does not have any chest pain, palpitation, any shortness of breath. No headache, no blurred vision, no numbness or tingling in the extremities and she does not have any pain involving any of the joints and no rash as well. In the Emergency Room, she was hemodynamically stable. She was afebrile. Her white count of more than 16,000 and a CAT scan did show acute diverticulitis involving the sigmoid colon but no evidence of any perforation and/or abscess. From that point, she was started on intravenous antibiotic and was advised admission. . Physical Exam (per Admitting): GENERAL: On examination in the Emergency Room, she was not having any acute distress, but she complained to have some pain in the left lower abdomen and hypogastric area. HEENT: Unremarkable. VITAL SIGNS: Temperature 36.9, pulse of 110. Blood pressure was 130/75 and saturation 97% on room air. HEENT: Unremarkable. NECK: Supple. No JVD, no bruit. CHEST: Clear to auscultation bilaterally. HEART: S1, S2 regular. ABDOMEN: Slightly distended and soft. Tender in the left lower quadrant and also hypogastrium. There is no rebound tenderness and tenderness noted in the left flank and/or left renal angle as well. EXTREMITIES: No edema. MUSCULOSKELETAL: Did not show any acute arthritis involving any joint. CENTRAL NERVOUS SYSTEM: Alert, awake, oriented x3 and did not have any focal sensory and/or motor deficit. She did not have any rash on general examinations and did not have any enlargement of lymph nodes. . Hospital Course DIVERTICULITIS SIGMOID COLON Presented to ED with LLQ abdominal pain and leukocytosis. CT demonstrated sigmoid diverticulitis without evidence of perforation or abscess. Received IV ciprofloxacin and metronidazole with improvement. Diet advanced without difficulty. Transition to oral therapy with ciprofloxacin and metronidazole to complete 14 day course. May be reasonable to consider elective sigmoid resection in light of multiple recurrences. Patient to discuss referral with PCP. HYPERGLYCEMIA Family history of diabetes. Fasting blood sugar morning of admission 180. Fasting blood sugar 07/26 was 239. Hemoglobin A1c = 6.7. Received Lantus/NovoLog per protocol during hospital stay. Diet, exercise, weight management discussed. Outpatient follow-up with PCP. May require initiation of therapy if blood sugars remain elevated. VERTIGO Pr[place]ant-Hallpike positive on right. Felecia maneuver attempted, but not tolerated. Outpatient follow-up with ENT recommended. VTE PROPHYLAXIS SQ enoxaparin. Ambulate. DISPOSITION Discharge to home. Family Medicine follow-up with Dr. De Paz. . Total time spent on discharge = 40 min. This includes examination of the patient, discharge planning, medication reconciliation, and communication with other providers. . Discharge Instructions Date of Service Jul 27, 2017. Admission Reason for Admission: diverticulitis . Discharge Discharge Diagnosis / Problem: diverticulitis Discharge Goals Goal(s): Improve disease control Activity Recommendations Activity Limitations: resume your previous activity . Instructions / Follow-Up Instructions / Follow-Up FOLLOW-UP APPOINTMENTS: FAMILY MEDICINE 07/29/2017 1:00 PM Ruth De Paz DO INSTRUCTIONS: Take ciprofloxacin (Cipro) 500 mg twice a day for 12 days. Take metronidazole (Flagyl) 500 mg 3 times a day for 12 days. Low fiber diet for 2 weeks, then high fiber. Avoid excessive starches and sweets. Have Dr. De Paz follow your blood sugars. Consider consultation with Dr. Moore to discuss recurrent diverticulitis. Seek medical attention if you have: * temperature above 101 * chest pain or trouble breathing * abdominal pain, nausea, vomiting * diarrhea, dark stools or bloody stools * any unanswered questions or concerns Call 911 if symptoms are severe. Call if you have any questions or problems. My cell # is [phone]. You can also reach a [facility] hospitalist on duty at [facility] 24 hours a day by calling [phone]. Please take good care of yourself. Christopher Russo . Current Hospital Diet Patient's current hospital diet: Diabetes Type 2 Diet, Low Fiber Diet Discharge Diet Recommended Diet: Regular Diet (see diet comments under "Instructions / Follow- up") Pending Studies Studies pending at discharge: no List of pending studies: CT abdomen showed diverticulitis. Laboratory Results Hemoglobin A1c Test 07/27/17 06:24 Range/Units Estimated Average Glucose 146 mg/dl Hemoglobin A1c 6.7 H 4.5-5.6 % Work Instructions Additional Instructions: Dayna Sheikh was absent from work the week of 07/25/17 due to illness. Anticipated return to work Tuesday08/01/17 without restrictions. Medical Emergencies . Who to Call and When: Medical Emergencies: If at any time you feel your situation is an emergency, please call 911 immediately. . Non-Emergent Contact Non-Emergency issues call your: Primary Care Provider, Hospital Doctor . . "Provider Documentation" section prepared by Christopher Russo. . VTE Core Measure Inpt VTE Proph given/why not?: Enoxaparin (Lovenox)SQ . Additional Copies To Ruth De Paz,DO
== END 2017-07-27 18:00 | disposition home or self-care (01) | DRG 392 ==
LOC: C.EDB 05:39 → C.MSW 08:25 → ENRESERV 08:45
PROVIDERS: ADMIT Internal Medicine; ATTEND Hospitalist
DX: K57.32 Diverticulitis of large intestine without perforation or abscess without bleeding (principal); D72.829 Elevated white blood cell count, unspecified; R73.9 Hyperglycemia, unspecified; Z90.49 Acquired absence of other specified parts of digestive tract; Z80.3 Family history of malignant neoplasm of breast; Z98.51 Tubal ligation status; Z83.3 Family history of diabetes mellitus; Z82.49 Family history of ischemic heart disease and other diseases of the circulatory system